=== PATIENT | male | born 1985 | race Caucasian/White ===

== ENCOUNTER 2020-08-09 05:35 | Emergency (ER) | payer BC, OTHER ==
[~2020-08-09] VITALS: Ht 165.1 cm; Wt 76.2 kg
[2020-08-09 05:55] VITALS: BP 139/69
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
--- NOTE | 2020-08-09 05:55 | NUR ---
PT TAKEN TO BED 1
[2020-08-09] MEDS: IBUPROFEN 800 MG TAB PO ONE (06:36)
--- NOTE | 2020-08-09 06:44 | NUR ---
Wound care performed to wound on top of LT hand. Wound cleansed with NS, patted dry, covered with sterile gauze, secured with tape and then wraped with coban. PT tolerated well, + CMS distal to coban wrap.
[2020-08-09 06:57] VITALS: BP 113/65
--- NOTE | 2020-08-09 06:57 | NUR ---
Patient discharged with v/s stable. Written and verbal after care instructions given and explained. Patient alert, oriented and verbalized understanding of instructions. Ambulatory with steady gait. All questions addressed prior to discharge. ID band removed. Patient advised to follow up with PMD. Rx of KEFLEX AND BACTRIM given. Patient educated on indication of medication including possible reaction and side effects. Opportunity to ask questions provided and answered.
== END 2020-08-09 06:57 | disposition home or self-care (01) ==
LOC: MED 05:35
DX: S61.412D Laceration without foreign body of left hand, subsequent encounter (principal); R03.0 Elevated blood-pressure reading, without diagnosis of hypertension; W26.0XXD Contact with knife, subsequent encounter
CPT/HCPCS: 90471; 90715; 99283; 99284

== ENCOUNTER 2021-01-27 22:11 | Emergency (ER) | payer BC ==
[~2021-01-27] VITALS: Ht 167.6 cm; Wt 72.6 kg
[2021-01-27 22:26] VITALS: BP 142/80
--- NOTE | 2021-01-27 22:28 | NUR ---
TO LOBBY A/W BED AMBULATORY
--- NOTE | 2021-01-28 00:22 | NUR ---
PT AMBULATED TO BED 11
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
--- NOTE | 2021-01-28 00:43 | NUR ---
LAB AT BEDSIDE DRAWING BLOOD.
--- NOTE | 2021-01-28 00:43 | NUR ---
PATIENT AMBULATED TO BED 11 WITH STEADY GAIT. UA SAMPLE PROVIDED. UA SAMPLE GIVEN TO Aldera.
[2021-01-28 00:53] LABS: APPEARANCE,URINE CLEAR (CLEAR); BILIRUBIN,URINE NEGATIVE (NEGATIVE); BLOOD, URINE TRACE-I (NEGATIVE); COLOR,URINE YELLOW (YELLOW); LEUKOCYTE ESTERASE ,URINE NEGATIVE (NEGATIVE); NITRITE, URINE NEGATIVE (NEGATIVE); PH,URINE 5.5 (5.0-9.0); UGLUCOSE NEGATIVE (NEGATIVE)
[2021-01-28 00:55] LABS: BASOPHILS # (AUTO) 0.1 K/uL (0.00-0.22); BASOPHILS % (AUTO) 0.6 % (0.0-2.0); EOSINOPHILS % (AUTO) 0.4 % (0.0-4.0); HEMOGLOBIN 15.2 g/dL (12.0-18.0); LYMPHOCYTES # (AUTO) 3.4 K/uL (2.0-11.5); LYMPHOCYTES % (AUTO) 37.8 % (20.5-51.1); MEAN CORPUSCULAR HEMOGLOBIN 32 pg (27-31); MEAN CORPUSCULAR HGB CONC 35 g/dL (33-37); MEAN CORPUSCULAR VOLUME 92.3 fL (80-94); MONOCYTES # (AUTO) 0.5 K/uL (0.8-1.0); MONOCYTES % (AUTO) 5.9 % (1.7-9.3); NEUTROPHILS # (AUTO) 4.9 K/uL (1.8-7.7); NEUTROPHILS % (AUTO) 55.3 % (42.2-75.2); PLATELET COUNT (AUTO) 191 K/uL (140-450); RED BLOOD CELL COUNT(AUTO) 4.77 MIL/uL (4.20-6.10); RED CELL DISTRIBUTION WIDTH 12.5 % (11.6-13.7); WHITE BLOOD COUNT (AUTO) 8.9 K/uL (4.8-10.8)
[2021-01-28 01:02] LABS: RBC,URINE 0-5 /HPF (0-5); WBC,URINE 0-5 /HPF (0-5)
[2021-01-28 01:10] LABS: ALBUMIN 4.6 g/dL (3.4-5.0); CARBON DIOXIDE 28.2 mmol/L (21-32); POTASSIUM 3.2 mmol/L (3.5-5.1); TOTAL BILIRUBIN 0.5 mg/dL (0.0-1.0)
--- NOTE | 2021-01-28 01:20 | NUR ---
PATIENT HEADED TO CT VIA WHEELCHAIR WITH [employer].
--- NOTE | 2021-01-28 01:32 | NUR ---
PATIENT BROUGHT BACK TO BED FROM CT VIA WHEELCHAIR.
[2021-01-28 02:36] VITALS: BP 142/80
--- NOTE | 2021-01-28 02:37 | NUR ---
Patient discharged with v/s stable. Written and verbal after care instructions given and explained. Patient verbalized understanding. Ambulatory with steady gait. All questions addressed prior to discharge. Advised to follow up with PMD. PT GIVEN COPY OF IMAGING PER REQUEST.
== END 2021-01-28 02:36 | disposition home or self-care (01) ==
LOC: MED 22:11
DX: R10.9 Unspecified abdominal pain (principal)
CPT/HCPCS: 36415; 80053; 81001; 85025; 99284

== ENCOUNTER 2022-07-26 07:35 | Emergency (ER) | payer BC ==
[~2022-07-26] VITALS: Ht 165.1 cm; Wt 74.8 kg
[2022-07-26 07:42] VITALS: BP 130/77
--- NOTE | 2022-07-26 07:53 | NUR ---
Pt ambulated to bed 11.
[2022-07-26] MEDS ORDERED: IBUPROFEN 600 MG TAB PO ONE (08:00)
[2022-07-26] MEDS ORDERED: CARI350T PO (08:02)
[2022-07-26] MEDS ORDERED: TRAM50TA1 PO (08:02)
[2022-07-26] MEDS ORDERED: NAPR-1704 PO (08:02)
--- NOTE | 2022-07-26 08:33 | NUR ---
36/M PRESENTS TO ED WITH C/O LOWER BACK PAIN "FOR MONTHS" STATING WORSENING THE LAST 3 DAYS. DENIES INJURY OR TRAUMA, STATES HE TOOK ADVIL AT 2AM WITH MINOR RELIEF, DENIES N/V/D OR URINARY SYMPTOMS.
[2022-07-26 08:45] VITALS: BP 130/77
--- NOTE | 2022-07-26 08:45 | NUR ---
Patient discharged with v/s stable. Written and verbal after care instructions ABOUT ACUTE BACK PAIN given and explained. Patient alert, oriented and verbalized understanding of instructions. Ambulatory with steady gait. All questions addressed prior to discharge. ID band removed. Patient advised to follow up with PMD. Rx of SOMA, NAPROSYN AND ULTRAM given. Patient educated on indication of medication including possible reaction and side effects. Opportunity to ask questions provided and answered.
== END 2022-07-26 08:45 | disposition home or self-care (01) ==
LOC: MED 07:35
DX: M54.50 Low back pain, unspecified (principal)
CPT/HCPCS: 72100; 99283